=== PATIENT | male | born 1975 ===

== ENCOUNTER 2017-03-07 20:01 | Emergency (ER) | payer OTHER ==
[2017-03-07 20:28] VITALS: TEMP 98.6; BMI 28.7
[2017-03-07 21:12] LABS: BASO # 0.02 K/mm3 (0.0-2.0); BASO % 0.3 % (0.0-3.0); EOS # 0.2 (0.0-0.7); EOS % 3.7 % (1.5-5.0); GRAN # 2.95 (1.4-6.5); GRAN % 45.3 % (50.0-68.0); HEMATOCRIT 38.5 % (42.0-52.0); LYMPH # 2.9 (1.2-3.4); LYMPH % 44.6 % (22.0-35.0); MEAN CELL VOLUME 83.7 fl (80.0-105.0); MEAN CORPUSCULAR HEMOGLOBIN 29.1 pg (25.0-35.0); MEAN CORPUSCULAR HGB CONC 34.8 g/dl (31.0-37.0); MEAN PLATELET VOLUME 10.3 fl (7.0-11.0); MONO # 0.4 (0.1-0.6); MONO % 6.1 % (1.0-6.0); RED CELL DISTRIBUTION WIDTH 12.9 % (11.5-14.5); WHITE BLOOD COUNT 6.5 10^3/ul (4.5-11.0)
[2017-03-07 21:23] LABS: ALB/GLOB RATIO 1.4 (1.1-1.8); ALKALINE PHOSPHATASE 119 U/L (38-133); ALT/SGPT 48 U/L (7-56); AST/SGOT 37 U/L (15-59); BILIRUBIN,TOTAL 0.4 mg/dL (0.2-1.3); BLOOD UREA NITROGEN 16 mg/dL (7-21); CARBON DIOXIDE 26 mmol/L (21-33); CHLORIDE 104 mmol/L (98-107); GFR AFRICAN-AMERICAN > 60; GLUCOSE,RANDOM 97 mg/dL (70-110); SODIUM 141 mmol/L (132-148)
[2017-03-07 21:24] LABS: INR 1.01 (0.93-1.08); PARTIAL THROMBOPLASTIN TIME 27.4 Seconds (23.7-30.8)
--- NOTE | 2017-03-07 21:40 | ED PDOC ---
Arrival/HPI - General Chief Complaint: Lower Extremity Problem/Injury Time Seen by Provider: 03/07/17 20:36 Historian: Patient - History of Present Illness Narrative History of Present Illness (Text): 03/07/17 20:45 This 41 yo male presents to this ED c/o left lower leg swelling, left knee pain , left anterior ankle/yuusf pain x 7 days. Patient stated he also developed bruising left medial ankle last night. Patient stated he is constantly on his knees at work. Patient denies trauma, fall, weakness, paresthesias, erythema, skin rash, or abnormal gait. Patient stated he saw his doctor today, who performed left ankle x-rays, MRI of his left knee, and left lower extremity venous doppler. All exams were negative as per patient. Time/Duration: 1 week Context: Home Past Medical History - Provider Review Nursing Documentation Reviewed: Yes - Infectious Disease Hx of Infectious Diseases: None - Psychiatric Hx Substance Use: No - Anesthesia Hx Anesthesia: No Hx Anesthesia Reactions: No Hx Malignant Hyperthermia: No Family/Social History - Physician Review Nursing Documentation Reviewed: Yes Family/Social History: Other (non-contributory) Smoking Status: Never Smoked Hx Alcohol Use: No Hx Substance Use: No Allergies/Home Meds Allergies/Adverse Reactions: Allergies No Known Allergies Allergy (Verified 03/07/17 20:46) Review of Systems - Review of Systems Constitutional: Normal. absent: Fatigue, Weight Change, Fevers Eyes: Normal ENT: Normal Respiratory: Normal. absent: SOB, Cough Cardiovascular: Normal. absent: Chest Pain, Palpitations Gastrointestinal: Normal. absent: Abdominal Pain, Nausea, Vomiting Genitourinary Male: Normal Musculoskeletal: Other (see hpi) Skin: Normal Neurological: Normal Endocrine: Normal Hemo/Lymphatic: Normal Psychiatric: Normal Physical Exam Vital Signs Temp Pulse Resp BP Pulse Ox 03/07/17 23:36 67 17 142/87 99 03/07/17 20:23 98.6 F 72 16 128/82 98 Temperature: Afebrile Blood Pressure: Normal Pulse: Regular Respiratory Rate: Normal Appearance: Positive for: Well-Appearing, Non-Toxic, Comfortable Pain Distress: None Mental Status: Positive for: Alert and Oriented X 3 - Systems Exam Head: Present: Atraumatic, Normocephalic Pupils: Present: PERRL Extroacular Muscles: Present: EOMI Conjunctiva: Present: Normal Mouth: Present: Moist Mucous Membranes Neck: Present: Normal Range of Motion Respiratory/Chest: Present: Clear to Auscultation, Good Air Exchange. No: Respiratory Distress, Accessory Muscle Use, Wheezes, Retracting, Rhonchi Cardiovascular: Present: Regular Rate and Rhythm, Normal S1, S2. No: Murmurs Abdomen: No: Tenderness Upper Extremity: Present: Normal Inspection, Normal ROM, NORMAL PULSES, Capillary Refill < 2s Lower Extremity: Present: Edema (mild left lower leg edema, +1. No erythema), NORMAL PULSES, Normal ROM, Tenderness (mild anterior left yusuf tenderness. No calf or posterior ankle tenderness. Daniel test is negative), Neurovascularly Intact, Capillary Refill < 2 s. No: CALF TENDERNESS, Irish's Sign, Erythema, Deformity, Temperature Abnormalties Neurological: Present: GCS=15, CN II-XII Intact, Speech Normal, Motor Func Grossly Intact, Normal Sensory Function, Normal Cerebellar Funct, Gait Normal Skin: Present: Warm, Dry, Normal Color. No: Rashes Psychiatric: Present: Alert, Oriented x 3, Normal Insight, Normal Concentration Medical Decision Making ED Course and Treatment: 03/07/17 23:43 Re-evaluation. Patient feels better. Discussed results and plan with patient who expresses understanding. All questions answered and there is agreement with the plan to discharge home with instructions. Patient stable for discharge. Return if symptoms persist or worsen. Re-evaluation Time: 23:44 Reassessment Condition: Re-examined, Improved - Lab Interpretations Lab Results: 03/07/17 21:07 03/07/17 21:07 Lab Results 03/07/17 21:07: Sodium 141, Potassium 4.0, Chloride 104, Carbon Dioxide 26, Anion Gap 15, BUN 16, Creatinine 1.1, Est GFR ( Amer) > 60, Est GFR (Non- Af Amer) > 60, Random Glucose 97, Calcium 9.0, Total Bilirubin 0.4, AST 37, ALT 48, Alkaline Phosphatase 119, Total Creatine Kinase 198, Total Protein 7.0, Albumin 4.1, Globulin 2.9, Albumin/Globulin Ratio 1.4 03/07/17 21:07: PT 10.9, INR 1.01, APTT 27.4 03/07/17 21:07: WBC 6.5, RBC 4.60, Hgb 13.4 L, Hct 38.5 L, MCV 83.7, MCH 29.1, MCHC 34.8, RDW 12.9, Plt Count 211, MPV 10.3, Gran % 45.3 L, Lymph % (Auto) 44.6 H, Craven % (Auto) 6.1 H, Eos % (Auto) 3.7, Baso % (Auto) 0.3, Gran # 2.95, Lymph # 2.9, Craven # 0.4, Eos # 0.2, Baso # 0.02 I have reviewed the lab results: Yes Interpretation: No clinic. lab abnormalty - RAD Interpretation Narrative RAD Interpretations (Text): 03/07/17 23:44 Lower extremity venous doppler: No DVT as per US Radiology Orders: 03/07/17 20:47 DUPLEX LOWER EXTRM VEIN LEFT [US] Stat Disposition/Present on Arrival - Present on Arrival Any Indicators Present on Arrival: No History of DVT/PE: No History of Uncontrolled Diabetes: No Urinary Catheter: No History of Decub. Ulcer: No History Surgical Site Infection Following: None - Disposition Have Diagnosis and Disposition been Completed?: Yes Diagnosis: Leg swelling, Leg pain Disposition: HOME/ ROUTINE Disposition Time: 23:45 Patient Plan: Discharge Condition: GOOD Discharge Instructions (ExitCare): Leg Pain (ED) Additional Instructions: Call private doctor for follow up visit in 1-2 days. Also call orthopedist for further medical care. Return to emergency if symptoms worsen. take medication as instructed with food Prescriptions: Famotidine [Pepcid] 40 mg PO DAILY #10 tablet Naproxen 500 mg PO BID PRN #14 tab PRN Reason: Pain, Severe (8-10) Referrals: PCP,NO [Primary Care Provider] - Follow up with primary Jonnie Brock MD [Staff Provider] - Follow up with primary Forms: [employer] ([place])
[2017-03-07 23:37] VITALS: BP 142/87; PULSE 67; RESP 17; O2SAT 99
--- NOTE | 2017-03-08 08:38 | US ---
PROCEDURE: Left lower extremity venous US HISTORY: Leg pain and swelling. Evaluate for DVT. PHYSICIAN(S): Dallas Price MD. TECHNIQUE: Duplex sonography and color-flow Doppler with graded compression were used to evaluate the deep venous system of the left lower extremity. FINDINGS: The visualized deep venous system of the left lower extremity is sonographically normal and compressible. Normal wave forms and augmentation are seen. There is no sonographic evidence for deep venous thrombosis in the visualized segments of the left lower extremity. IMPRESSION: 1. No sonographic evidence for deep venous thrombosis in the visualized segments of the left lower extremity.
== END 2017-03-08 00:04 | disposition home or self-care (01) ==
LOC: ED 20:01
DX: M79.89 Other specified soft tissue disorders (principal); M79.605 Pain in left leg